=== PATIENT | female | born 1980 | race Caucasian/White ===

== ENCOUNTER → 2018-03-22 22:41 | Outpatient (CLI) | payer OTHER, SELFPAY ==
[2013-12-03 09:52] VITALS: BMI 30.5
[2018-03-25 13:16] LABS: HPV Reflexed? NOT INDICATED
--- OUTSIDE RECORDS SUMMARY | 2018-06-24 06:33 | XMS RPT_ITS ---
:1980 Author Organization OHIP Care Team Providers Name Role Phone Leigh Corrigan Attending Unavailable Abby Pruitt Primary Care Unavailable LUISANA WESLEY Admitting Unavailable LUISANA WESLEY Attending Unavailable LUISANA WESLEY Consulting Unavailable LUISANA WESLEY Primary Care Unavailable PROBLEMS PROBLEMS DATE TYPE CONDITION / CODE ATTENDING STATUS SOURCE 03/22/2018 Unknown Z12.4 - Encounter Leigh Corrigan Active [place] [facility] Repository cervix / Z12.4(ICD-10) 11/24/2017 Admitting ENC SCREENING FOR LUISANA WESLEY Active [facility] diagnosis LIPOID DISORDERS [facility] / Z13.220(ICD-10) Repository 11/24/2017 Unknown ENC SCREENING FOR LUISANA WESLEY Active [facility] LIPOID DISORDERS [facility] / Z13.220(ICD-10) Repository 11/24/2017 Unknown 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 LUISANA WESLEY Active [place] [facility] NOT INTRCT W/O SM N Hospital / G43.709(ICD-10) Repository 11/24/2017 Unknown ABNORMAL WEIGHT LUISANA WESLEY Active [place] GAIN / N Hospital R63.5(ICD-10) Repository 11/24/2017 Unknown VITAMIN D LUISANA WESLEY Active [place] DEFICIENCY Hospital UNSPECIFIED / Repository E55.9(ICD-10) 11/17/2017 Admitting LIPOID DISORD LUISANA WESLEY Active [place] [facility] diagnosis SCREENING / N Hospital V77.91(ICD-9) Repository 11/17/2017 Unknown LIPOID DISORD FERENBAUGH, LUISANA Active [facility] SCREENING / N Hospital V77.91(ICD-9) Repository 11/17/2017 Unknown CHR MWOA W/O LUISANA WESLEY Active [facility] STATUS [place] / N Hospital 346.70(ICD-9) Repository 11/17/2017 Unknown ABNORMAL WEIGHT LUISANA WESLEY Active [facility] GAIN / N Hospital 783.1(ICD-9) Repository 11/17/2017 Unknown VITAMIN D LUISANA WESLEY Active [facility] DEFICIENCY NOS / N Hospital 268.9(ICD-9) Repository PROCEDURES PROCEDURES No Procedure Records FoundRESULTS RESULTS PAP I-G W/RFX HRHPV Collected: 03/22/2018 Status: F Source: [place] 2:45 PM [facility] REPOSITORY Order Comment: CYTOLOGY INFORMATION: - CLINICAL INFORMATION: - DATE LMP/MENOPAUSE: 03/13/18 - COLLECTION VIAL: Thin Prep Vial - SALON LEADER SOURCE: CERVICAL/ENDOCERVICAL - COLLECTION TECHNIQUE: BRUSH/SPATULA Specimen Comment: [id number] Specimen Comment: Source.............Cervix;Endocervix Specimen Comment: LMP / Prev Treat...[id number] Specimen Comment: No. of containers..01 ThinPrep Vial TYPE CODE TESTS RESULT OUT OF RANGE REFERENCE UNITS LAB L7400.0800 . Normal DIAGN Comment Result Comment: NEGATIVE FOR INTRAEPITHELIAL LESION AND MALIGNANCY. LAB L7400.0900 . Normal ADEQ Comment Result Comment: Satisfactory for evaluation. Endocervical and/or squamous metaplastic cells (endocervical component) are present. LAB L7400.1400 . Normal PERFORM Comment Result Comment: Jessica Huynh, Immigration Patrol Inspector (ASCP) LAB L7400.2575 . Normal TEST METHOD Comment Result Comment: This liquid based ThinPrep(R) pap test was screened with the use of an image guided system. LAB L7400.2600 . Normal . COMM LAB L7400.2700 . Normal PAPSMR Comment Result Comment: The Pap smear is a screening test designed to aid in the detection of premalignant and malignant conditions of the uterine cervix. It is not a diagnostic procedure and should not be used as the sole means of detecting cervical cancer. Both false-positive and false-negative reports do occur. LAB L7400.2800 . Normal HPV RFLX Comment Result Comment: The HPV DNA reflex criteria were not met with this specimen result therefore, no HPV testing was performed. Performed at: [facility] [address] [place] [id number] Technology Solutions Architect: Dinah Armijo MD, Phone: [phone] Performed By: #### L7400.0350 #### [facility] (refer to report for specific site) refer to report for address and phone number COMPREHENSIVE METABOLIC Collected: 11/18/2017 Status: F Source: [place] PANEL 8:54 AM [facility] REPOSITORY TYPE CODE TESTS RESULT OUT OF REFERENCE UNITS RANGE LAB 2951-2(LO 136-145 mmol/L INC) 138 Sodium [facility] LAB 2823-3(LO 3.5-5.1 mmol/L INC) 4.1 Potassium [facility] LAB 2075-0(LO 98-107 mmol/L INC) 104 Chloride [facility] LAB 2028-9(LO 21-32 mmol/L INC) 26 CO2 [facility] LAB 3094-0(LO 7-17 mg/dL INC) 12 BUN [facility] LAB 2160-0(LO 0.51-0.95 mg/dL INC) 0.64 Creat [facility] LAB 18028-2(L >=59 mL/min OINC) >=59 GFR/BSA.pred SerPl MDRD-[facility] LAB 2345-7(LO 74-106 mg/dL INC) 95 Glucose [facility] LAB 74043-2(L 8.5-10.1 mg/dL OINC) 8.7 Calcium [facility] LAB 1975-2(LO 0.2-1.0 mg/dL INC) 0.3 Bilirub [facility] LAB 2885-2(LO 6.4-8.2 g/dL INC) 7.6 Prot [facility] LAB 1751-7(LO 3.4-5.0 g/dL INC) 3.8 Albumin [facility] LAB 93734-1(L <=15.0 mmol/L OINC) 8.0 Anion Gap3 [facility] LAB 6768-6(LO 50-136 U/L INC) 70 ALP [facility] LAB 1920-8(LO 15-37 U/L INC) 22 AST [facility] LAB 1742-6(LO 14-59 U/L INC) 15 ALT [facility] LAB HGFR(LOIN C) GLOMERULAR HGFR FILTRATION RATE INTERPRETATION~The eGFR is calculated using the MDRD equation.~This equation has been validated in patients with chronic kidney disease;~however, it underestimates the GFR in healthy patients with GFR's over 60 mL/min.~The equation is not valid in children under the age of 18.~NOTE: Criteria for Chronic Kidney Disease:~ ~1. Kidney damage for at least three months, as defined~by structural or functional abnormalities of the kidney,~with or without decreased glomerular filtration rate, manifested by either:~* Pathological abnormalities or~* Markers of Kidney damage, including abnormalities in~the composition of the blood or urine or abnormalities in imaging tests.~ ~2. GFR <60 mL/min/1.73 m squared for at least three months, with or without kidney damage.~ Performed By: #### 30283-7, 51042-4, 40458- 3, 11967-3 #### [facility] [address] [facility] [address]. [place] [address] Tag Meter Operator - [facility] [id number] TSH 3RD GENERATION Collected: 11/18/2017 Status: F Source: [facility] 8:54 AM HOSPITAL REPOSITORY TYPE CODE TESTS RESULT OUT OF RANGE REFERENCE UNITS LAB 85334-4(ROBERT 0.358-3.740 uIU/mL NC) TSH SerPl 1.700 DL<=0.05 mIU/L-aCnc Performed By: #### 45635-4, 18413-5, 96319- 3, 69120-6 #### [facility] [address] [facility] [address] [facility] [address]. [place] [address] Tag Meter Operator - [facility] [id number] LIPID PANEL Collected: 11/18/2017 Status: F Source: [facility] 8:54 AM HOSPITAL REPOSITORY TYPE CODE TESTS RESULT OUT OF REFERENCE UNITS RANGE LAB 2093-3(ROBERT <=200 mg/dL NC) 152 Cholest SerPl-mCnc LAB 2571-8(ROBERT <=150 mg/dL NC) 69 Trigl SerPl-mCnc LAB 2085-9(ROBERT 40-59 mg/dL NC) 69 High HDLc SerPl-mCnc LAB 53621-2(LO 5-100 mg/dL INC) 70 LDLc SerPl Calc-mCnc LAB 9830-1(ROBERT NC) 2.2 Cholest/HDLc SerPl-mRto LAB 84602-8(LO INC) 1.0 LDLc/HDLc SerPl-mRto LAB HCHOL(LOIN C) CHOLESTEROL HCHOL INTERPRETATION Desirable <200 Borderline High 200-239 High >240 LAB HTRIG(LOIN C) TRIGLYCERIDES HTRIG INTERPRETATION Normal <150 Borderline High 150-199 High 200-499 Very High >500 LAB HLDL(LOINC ) LDL HLDL INTERPRETATION Desirable <100 Near Optimal 100-129 Borderline High 130-159 High 160-190 Very High >190 LAB HLIPID(ROBERT NC) ATEROSCLEROSIS HLIPID RISK FACTORS FOR LDL, HDL, AND CHOLESTEROL RISK FACTOR SEX LDL/HDL CHOL/HDL 1/2 Average M 1.00 3.43 F 1.47 3.27 Average M 3.55 4.97 F 3.22 4.44 2X Average M 6.25 9.55 F 5.03 7.05 3X Average M 7.99 23.39 F 6.14 11.04 Performed By: #### 46231-8, 49293-2, 83933- 3, 09525-5 #### [facility] [address] [place] [address] Tag Meter Operator - Mony VALDEZ [id number] MAGNESIUM Collected: 11/18/2017 Status: F Source: [facility] 8:54 AM HOSPITAL REPOSITORY TYPE CODE TESTS RESULT OUT OF REFERENCE UNITS RANGE LAB 78655-8(LO 1.6-2.6 mg/dL INC) Magnesium 2.1 SerPl-mCnc Performed By: #### 56400-9, 38116-0, 40837- 3, 69661-5 #### [facility] [address] [place] [address] Tag Meter Operator - Mony VALDEZ [id number] VITAMIN D 25 HYDROXY Collected: 11/18/2017 Status: F Source: [facility] 8:54 AM HOSPITAL REPOSITORY TYPE CODE TESTS RESULT OUT OF REFERENCE UNITS RANGE LAB 1989-3(ROBERT 30.0-100.0 ng/mL NC) 26.7 Low 25(OH)D3 [facility] LAB HVITD(LOIN C) VITAMIN D HVITD INTERPRETATION VITAMIN D STATUS RANGE DEFICIENCY <20 ng/mL INSUFFICIENCY 20-30 ng/mL SUFFICIENCY 30-100 ng/mL TOXICITY >100 ng/mL Performed By: #### 03113-1 #### [place] [address] [place] [address] Tag Meter Operator - Mony VALDEZ [id number] ALLERGIES ALLERGIES DATE TYPE / CODE NAME / CODE REACTION SEVERITY SOURCE 12/03/2013 Drug latex/V16046 Rash Unknown [facility] Allergy/4160 8921(RXNORM) [facility] [address]170(SNOMED Repository CT) ENCOUNTERS ENCOUNTERS ADMIT/DISCHARGE ACCOUNT ADMITTING ENCOUNTER LOCATION SOURCE NUMBER CLASS 03/22/2018 [id number] Ambulatory [facility] Hospital ing:LABSPEC Repository 11/18/2017/11/19/19 [id number] [facility]ulatory [facility] 18 LUISANA N [facility] - Repository LiveBuilding: LAB PAYERS PAYERS ENCOUNTER GUARANTOR PAYER SUBSCRIBER SOURCE 03/22/2018 GISELE Primary Insurance:MED GISELE [id number] MUTUAL TPAPolicy [facility]: [id number] [id number] [place]ository [place] [address]Nce: Date:9835-10-53MG [address] [address], [place] () [address]PA: CHECK WEBSITE 03/22/2018 Secondary NOT GIVENUNK Fernanda Insurance:SELF PAY [facility] Number: Effective Repository Date:2018-03-22 11/18/2017 SREEDHAR Carpenter Primary SREEDHAR [place] [facility] STROUSEDOB: Insurance:MEDICAL STROUSEDOB: [facility] [id number] [facility] [id number] Repository VIENNA Number: [address] [facility], [id number], [place] [address]Kgy: Date:[id number] [address] [phone], [place] [address] () [address]~[address]WP:
== END ==
PROVIDERS: Visit Provider Obstetrics & Gynecology
DX: Z12.4 Encounter for screening for malignant neoplasm of cervix (principal)
CPT/HCPCS: 88175; G0145

== ENCOUNTER → 2021-04-03 | Outpatient (CLI) | payer OTHER, SELFPAY ==
[2021-04-12 10:04] LABS: HPV APTIMA, High Risk Negative (Negative)
[2021-04-12 11:01] LABS: HPV Reflexed? YES, CHARGE PATIENT
== END | disposition home or self-care (01) ==
LOC: LABSPEC 10:18
PROVIDERS: Visit Provider Obstetrics & Gynecology
DX: Z12.4 Encounter for screening for malignant neoplasm of cervix (principal)
CPT/HCPCS: 87624; 88175; G0145

== ENCOUNTER → 2022-06-18 | Outpatient (CLI) | payer BC, SELFPAY ==
--- NOTE | 2022-06-18 09:14 | BI_ITS ---
MAMMOGRAPHY - BILATERAL DIAGNOSTIC REASON FOR EXAM: Female, 41 years old. Bilateral lumps PERTINENT HISTORY: Patient states lumpy breasts TECHNIQUE: Digital examination. Mediolateral oblique (MLO) and craniocaudad (CC) views of both breasts were obtained, along with 3-D tomosynthesis. CAD: CAD was performed on this study. COMPARISON: None. Baseline examination. FINDINGS: Breast Composition: The breasts are heterogeneously dense, which may obscure small masses. There are no dominant masses or suspicious calcifications. No other significant abnormalities are identified. However, because the patient complains of lumpy breast tissue, further evaluation of each breast with ultrasound is recommended. BI/DIAG MAMM W/CAD, BILAT IMPRESSION: Further ultrasonographic evaluation recommended, as described above. Recall Side: Both Breasts ASSESSMENT CATEGORY: BIRADS Category 0: Incomplete. Need additional imaging evaluation. A letter regarding these results will be sent to the patient by the facility within 30 days. FOLLOW UP RECOMMENDATION: Ultrasound Recommended. (I) Approximately 10% of breast cancers are not detected by mammography. A normal mammogram should not delay biopsy of a clinically suspicious abnormality. Electronically Signed: Aniceto Ha MD at 10:28 EDT ,
--- NOTE | 2022-06-18 09:53 | US_ITS ---
STUDY: ULTRASOUND BREAST - RIGHT REASON FOR EXAM: Female, 41 years old. Palpable lump in right breast by history. TECHNIQUE: Axial and longitudinal images of the RIGHT breast were performed with a high resolution ultrasound transducer. # OF IMAGES: 17 COMPARISON: Mammogram dated June 18, 2022. FINDINGS: RIGHT Breast: Ultrasound of the upper outer quadrant of the right breast shows dense fibroglandular tissue. No dominant cystic or solid masses are identified. US/Breast Limited Unilateral IMPRESSION: Dense fibroglandular tissue with no dominant cystic or solid masses. Negative imaging should not prohibit further evaluation of any clinically suspicious finding. ASSESSMENT CATEGORY: BIRADS Category 1: Negative. A letter regarding these results will be sent to the patient by the facility within 30 days. Electronically Signed: Pavel Moreno, at 12:58 EDT ,
== END | disposition home or self-care (01) ==
PROVIDERS: Visit Provider Student in an Organized Health Care Education/Training Program
DX: N63.0 Unspecified lump in unspecified breast (principal)
CPT/HCPCS: 76642; 77062; 77066; G0279